=== PATIENT | female | born 1960 | race Caucasian/White ===

== ENCOUNTER 2019-02-03 12:23 | Emergency (ER) | payer MEDICARE, OTHER ==
[2019-02-03] MEDS ORDERED: IPRATROPIUM-ALBUTEROL 3 ML NEB INHALATION STA (14:02)
[2019-02-03] MEDS ORDERED: MAGNESIUM SULFATE-D5W PMX 1 GM in DEXTROSE/WATER 1 100ML.BAG IVPB STA (14:02)
[2019-02-03] MEDS ORDERED: methylPREDNISolone SOD SUCCI 125 MG/2 ML VIAL IV STA (14:02)
[2019-02-03 14:42] LABS: Basophils % (A) 1 %; Eosinophils # (A) 0.3 k/uL (0-0.7); Eosinophils % (A) 3 %; HCT 39.5 % (34.0-46.0); HGB 13.1 gm/dL (11.4-16.0); Lymphocytes # (A) 2.1 k/uL (1.0-4.8); Lymphocytes % (A) 22 %; MCH 30.2 pg (25.0-35.0); MCHC 33.1 g/dL (31.0-37.0); MCV 91.2 fL (80.0-100.0); Mean Platelet Volume 8.6; Monocytes # (A) 0.4 k/uL (0-1.0); Monocytes % (A) 4 %; Neutrophils # (A) 6.3 k/uL (1.3-7.7); Neutrophils % (A) 69 %; Platelet Count 254 k/uL (150-450); RBC 4.33 m/uL (3.80-5.40); RDW 13.2 % (11.5-15.5); WBC 9.2 k/uL (3.8-10.6)
[2019-02-03 14:43] LABS: Appearance,Urine Clear (Clear); Bilirubin,Urine Negative (Negative); Blood,Urine Negative (Negative); Color,Urine Light Yellow; Glucose,Urine (UA) Negative (Negative); Ketones,Urine Negative (Negative); Leukocyte Esterase,Urine Negative (Negative); Nitrite,Urine Negative (Negative); Protein,Urine Negative (Negative); Specific Gravity,Urine 1.009 (1.001-1.035); Urobilinogen,Urine <2.0 mg/dL (<2.0)
[2019-02-03 14:51] VITALS: RESP 20
[2019-02-03 14:51] LABS: ALT 27 U/L (9-52); AST 39 U/L (14-36); African American GFR (CKD) >90 (>60 ml/min/1.73 sqM); Albumin 4.2 g/dL (3.5-5.0); Alkaline Phosphatase 90 U/L (38-126); Anion Gap 6 mmol/L; Blood Urea Nitrogen 13 mg/dL (7-17); Calcium 9.3 mg/dL (8.4-10.2); Carbon Dioxide 25 mmol/L (22-30); Chloride 107 mmol/L (98-107); Glucose 143 mg/dL (74-99); Magnesium 1.6 mg/dL (1.6-2.3); Non-African American GFR(CKD) >90 (>60 ml/min/1.73 sqM); Potassium 5.4 mmol/L (3.5-5.1); Sodium 138 mmol/L (137-145); Total Bilirubin 0.8 mg/dL (0.2-1.3); Total Protein 7.1 g/dL (6.3-8.2)
[2019-02-03 14:58] LABS: INR 0.9 (<1.2); Prothrombin Time 10.2 sec (9.0-12.0)
[2019-02-03 15:01] LABS: Partial Thromboplastin Time 21.7 sec (22.0-30.0)
--- NOTE | 2019-02-03 15:27 | XR ---
EXAMINATION TYPE: XR chest 2V DATE OF EXAM: 02/03/2019 COMPARISON: NONE HISTORY: Shortness of breath with lower extremity swelling. History of CHF and COPD. TECHNIQUE: Frontal and lateral views of the chest are obtained. FINDINGS: Cardiomediastinal silhouette is enlarged with post CABG changes. Very mild pulmonary vascu lar prominence is seen throughout. Copious soft tissues obscure the lung bases on the frontal view ho wever no pleural effusions on the lateral view. IMPRESSION: Mild fluid overload mild pulmonary vascular congestion and enlarged cardiac mediastinal silhouette.
--- NOTE | 2019-02-03 16:27 | ED ---
SOB HPI - General Chief Complaint: Shortness of Breath Stated Complaint: COPD, CHF, fluid in lungs Time Seen by Provider: 02/03/19 12:50 Source: patient Mode of arrival: wheelchair Limitations: no limitations - History of Present Illness Initial Comments: The patient is a 58-year-old female past medical history of COPD, hypertension and heart failure presents to the emergency department from [facility]. She has been residing at their facility for 2 months because of Xanax abuse. States that she has a history of COPD and CHF. She is suppose to be on 2 L of oxygen however since she has been residing at the facility she has not worn it. Also admits to a history of CHF and is supposed to be on Lasix. States that she hasn't been taking this medication either. During her stay at [facility] she has had increasing shortness of breath and wheezing. She does admit to sick contacts. The physician there evaluated her and place her on amoxicillin and then a Z-Curt when her symptoms didn't improve. She admits to a reductive cough with yellow sputum. He has been using her nebulizer with minimal improvement in her symptoms. Also admits to nasal congestion and ear pain. Reports a sore scratchy throat. No fevers or chills. Has not been on any steroids recently. Does see a automatic head sawyer and utility specialist out of [place] where she lives. She is a history of aortic valve replacement done in 2005. Reports to chronic bilateral lower extremity edema. Denies any calf pain or swelling. No history of DVT or PE. No chest pain. There are no alleviating, precipitating or modifying factors - Related Data Previous Rx's Medication Instructions Recorded Furosemide [Lasix] 20 mg PO DAILY #14 tablet 02/03/19 predniSONE 20 mg PO BID #10 tab 02/03/19 Allergies Allergy/AdvReac Type Severity Reaction Status Date / Time amitriptyline [From Elavil] Allergy Unknown Verified 02/03/19 12:53 diphenhydramine Allergy Unknown Verified 02/03/19 12:53 [From Benadryl] gabapentin [From Neurontin] Allergy Unknown Verified 02/03/19 12:53 morphine Allergy Unknown Verified 02/03/19 12:53 Review of Systems ROS Statement: Those systems with pertinent positive or pertinent negative responses have been documented in the HPI. ROS Other: All systems not noted in ROS Statement are negative. Past Medical History Past Medical History: Heart Failure, COPD, Hypertension Additional Past Medical History / Comment(s): hypoglycemia, wears oxygen at times, History of Any Multi-Drug Resistant Organisms: None Reported Past Surgical History: Section, Cholecystectomy, Coronary Bypass/CABG, Orthopedic Surgery Past Psychological History: No Psychological Hx Reported Smoking Status: Current every day smoker Past Alcohol Use History: None Reported Past Drug Use History: Prescription Drug Abuse General Exam Limitations: no limitations General appearance: alert, in no apparent distress Head exam: Present: atraumatic, normocephalic, normal inspection Eye exam: Present: normal appearance, PERRL, EOMI. Absent: scleral icterus, conjunctival injection, periorbital swelling ENT exam: Present: normal exam, mucous membranes moist Neck exam: Present: normal inspection. Absent: tenderness, meningismus, lymp hadenopathy Respiratory exam: Present: wheezes, rales, other (bronchospastic cough). Absent: respiratory distress, rhonchi, stridor Cardiovascular Exam: Present: regular rate, normal rhythm, normal heart sounds. Absent: systolic murmur, diastolic murmur, rubs, gallop, clicks GI/Abdominal exam: Present: soft, normal bowel sounds. Absent: distended, tenderness, guarding, rebound, rigid Extremities exam: Present: normal inspection, full ROM, normal capillary refill, pedal edema. Absent: tenderness, joint swelling, calf tenderness Back exam: Present: normal inspection Neurological exam: Present: alert, oriented X3, CN II-XII intact Psychiatric exam: Present: normal affect, normal mood Skin exam: Present: warm, dry, intact, normal color. Absent: rash Course Vital Signs 02/03/19 02/03/19 02/03/19 12:46 13:18 14:40 Temperature 98.0 F 98.7 F Pulse Rate 89 90 84 Respiratory 18 21 18 Rate Blood Pressure 119/64 118/71 O2 Sat by Pulse 99 97 Oximetry 02/03/19 02/03/19 14:48 16:39 Temperature 98.4 F 98.3 F Pulse Rate 83 89 Respiratory 20 20 Rate Blood Pressure 94/73 123/67 O2 Sat by Pulse 95 Oximetry Medical Decision Making - Medical Decision Making Upon arrival the patient was placed in room 15. A thorough history and physical exam was performed. The patient's does have vitals obtained and she has 95% saturation on room air. Denies not demonstrate any increased worker breathing however does have expiratory wheeze on exam. Because of this I did obtain IV access. The patient was given 125 mg solu Medrol, 1 g of magnesium and a DuoNeb breathing treatment. I did recommend laboratory studies. CBC is unremarkable. Coags are unremarkable. CMP shows a potassium of 5.4. Glucose 143. Troponin 0.015. BNP is 195. UA is negative. Influenza A and B are not detected. Chest x-ray demonstrated mild fluid overload mild pulmonary vascular congestion enlarged cardiac mediastinal silhouette. I discussed the case with the patient. I did recommend hospital admission as the patient has failed outpatient therapy however she refused. She is requesting to go home at this time. I did inform her that she will be placed on steroids because she is having persistent symptoms. Also recommended the patient restart her Lasix. I will write her a prescription for this. I strongly encouraged her to wear her oxygen. She needs to follow-up with her primary care physician to ensure stable kidney function on the Lasix. If she has any new or worsening symptoms or agrees to hospital admission she should return to the emergency room. The patient was then discharged back to [facility] in stable condition - Lab Data Result diagrams: 02/03/19 14:31 02/03/19 14:31 Lab Results 02/03/19 02/03/19 02/03/19 Range/Units 14:31 14:31 14:31 WBC 9.2 (3.8-10.6) k/uL RBC 4.33 (3.80-5.40) m/uL Hgb 13.1 (11.4-16.0) gm/dL Hct 39.5 (34.0-46.0) % MCV 91.2 (80.0-100.0) fL MCH 30.2 (25.0-35.0) pg MCHC 33.1 (31.0-37.0) g/dL RDW 13.2 (11.5-15.5) % Plt Count 254 (150-450) k/uL Neutrophils % 69 % Lymphocytes % 22 % Monocytes % 4 % Eosinophils % 3 % Basophils % 1 % Neutrophils # 6.3 (1.3-7.7) k/uL Lymphocytes # 2.1 (1.0-4.8) k/uL Monocytes # 0.4 (0-1.0) k/uL Eosinophils # 0.3 (0-0.7) k/uL Basophils # 0.0 (0-0.2) k/uL PT (9.0-12.0) sec INR (<1.2) APTT (22.0-30.0) sec Sodium 138 (137-145) mmol/L Potassium 5.4 H (3.5-5.1) mmol/L Chloride 107 (98-107) mmol/L Carbon Dioxide 25 (22-30) mmol/L Anion Gap 6 mmol/L BUN 13 (7-17) mg/dL Creatinine 0.53 (0.52-1.04) mg/dL Est GFR (CKD-EPI)AfAm >90 (>60 ml/min/1.73 sqM) Est GFR (CKD-EPI)NonAf >90 (>60 ml/min/1.73 sqM) Glucose 143 H (74-99) mg/dL Plasma Lactic Acid [place] (0.7-2.0) mmol/L Calcium 9.3 (8.4-10.2) mg/dL Magnesium 1.6 (1.6-2.3) mg/dL Total Bilirubin 0.8 (0.2-1.3) mg/dL AST 39 H (14-36) U/L ALT 27 (9-52) U/L Alkaline Phosphatase 90 (38-126) U/L Troponin I (0.000-0.034) ng/mL NT-Pro-B Natriuret Pep 195 pg/mL Total Protein 7.1 (6.3-8.2) g/dL Albumin 4.2 (3.5-5.0) g/dL Urine Color Urine Appearance (Clear) Urine pH (5.0-8.0) Ur Specific [place] (1.001-1.035) Urine Protein (Negative) Urine Glucose (UA) (Negative) Urine Ketones (Negative) Urine Blood (Negative) Urine Nitrite (Negative) Urine Bilirubin (Negative) Urine Urobilinogen (<2.0) mg/dL Ur Leukocyte Esterase (Negative) Influenza Type A RNA (Not Detectd) Influenza Type B (PCR) (Not Detectd) 02/03/19 02/03/19 02/03/19 Range/Units 14:31 14:31 14:31 WBC (3.8-10.6) k/uL RBC (3.80-5.40) m/uL Hgb (11.4-16.0) gm/dL Hct (34.0-46.0) % MCV (80.0-100.0) fL MCH (25.0-35.0) pg MCHC (31.0-37.0) g/dL RDW (11.5-15.5) % Plt Count (150-450) k/uL Neutrophils % % Lymphocytes % % Monocytes % % Eosinophils % % Basophils % % Neutrophils # (1.3-7.7) k/uL Lymphocytes # (1.0-4.8) k/uL Monocytes # (0-1.0) k/uL Eosinophils # (0-0.7) k/uL Basophils # (0-0.2) k/uL PT 10.2 (9.0-12.0) sec INR 0.9 (<1.2) APTT 21.7 L (22.0-30.0) sec Sodium (137-145) mmol/L Potassium (3.5-5.1) mmol/L Chloride (98-107) mmol/L Carbon Dioxide (22-30) mmol/L Anion Gap mmol/L BUN (7-17) mg/dL Creatinine (0.52-1.04) mg/dL Est GFR (CKD-EPI)AfAm (>60 ml/min/1.73 sqM) Est GFR (CKD-EPI)NonAf (>60 ml/min/1.73 sqM) Glucose (74-99) mg/dL Plasma Lactic Acid [place] (0.7-2.0) mmol/L Calcium (8.4-10.2) mg/dL Magnesium (1.6-2.3) mg/dL Total Bilirubin (0.2-1.3) mg/dL AST (14-36) U/L ALT (9-52) U/L Alkaline Phosphatase (38-126) U/L Troponin I 0.015 (0.000-0.034) ng/mL NT-Pro-B Natriuret Pep pg/mL Total Protein (6.3-8.2) g/dL Albumin (3.5-5.0) g/dL Urine Color Light Yellow Urine Appearance Clear (Clear) Urine pH 6.0 (5.0-8.0) Ur Specific [place] 1.009 (1.001-1.035) Urine Protein Negative (Negative) Urine Glucose (UA) Negative (Negative) Urine Ketones Negative (Negative) Urine Blood Negative (Negative) Urine Nitrite Negative (Negative) Urine Bilirubin Negative (Negative) Urine Urobilinogen <2.0 (<2.0) mg/dL Ur Leukocyte Esterase Negative (Negative) Influenza Type A RNA (Not Detectd) Influenza Type B (PCR) (Not Detectd) 02/03/19 02/03/19 Range/Units 14:31 14:36 WBC (3.8-10.6) k/uL RBC (3.80-5.40) m/uL Hgb (11.4-16.0) gm/dL Hct (34.0-46.0) % MCV (80.0-100.0) fL MCH (25.0-35.0) pg MCHC (31.0-37.0) g/dL RDW (11.5-15.5) % Plt Count (150-450) k/uL Neutrophils % % Lymphocytes % % Monocytes % % Eosinophils % % Basophils % % Neutrophils # (1.3-7.7) k/uL Lymphocytes # (1.0-4.8) k/uL Monocytes # (0-1.0) k/uL Eosinophils # (0-0.7) k/uL Basophils # (0-0.2) k/uL PT (9.0-12.0) sec INR (<1.2) APTT (22.0-30.0) sec Sodium (137-145) mmol/L Potassium (3.5-5.1) mmol/L Chloride (98-107) mmol/L Carbon Dioxide (22-30) mmol/L Anion Gap mmol/L BUN (7-17) mg/dL Creatinine (0.52-1.04) mg/dL Est GFR (CKD-EPI)AfAm (>60 ml/min/1.73 sqM) Est GFR (CKD-EPI)NonAf (>60 ml/min/1.73 sqM) Glucose (74-99) mg/dL Plasma Lactic Acid [place] 1.5 (0.7-2.0) mmol/L Calcium (8.4-10.2) mg/dL Magnesium (1.6-2.3) mg/dL Total Bilirubin (0.2-1.3) mg/dL AST (14-36) U/L ALT (9-52) U/L Alkaline Phosphatase (38-126) U/L Troponin I (0.000-0.034) ng/mL NT-Pro-B Natriuret Pep pg/mL Total Protein (6.3-8.2) g/dL Albumin (3.5-5.0) g/dL Urine Color Urine Appearance (Clear) Urine pH (5.0-8.0) Ur Specific [place] (1.001-1.035) Urine Protein (Negative) Urine Glucose (UA) (Negative) Urine Ketones (Negative) Urine Blood (Negative) Urine Nitrite (Negative) Urine Bilirubin (Negative) Urine Urobilinogen (<2.0) mg/dL Ur Leukocyte Esterase (Negative) Influenza Type A RNA Not Detected (Not Detectd) Influenza Type B (PCR) Not Detected (Not Detectd) - EKG Data EKG Comments: EKG demonstrates a sinus rhythm with frequent PVCs. Rate of 88. OH interval 156. QRS 80. QTC of 467. There are no acute ST segment elevations. Inverted T-wave in V2V3. No other EKGs to compare to. Disposition Clinical Impression: Respiratory insufficiency, COPD exacerbation, CHF exacerbation Disposition: HOME SELF-CARE Condition: Stable Instructions (If sedation given, give patient instructions): Heart Failure ( ER), COPD (Chronic Obstructive Pulmonary Disease) (ED) Additional Instructions: You must be reevaluated by the physician to insure improvement in your lower extremity edema. You should be using your home oxygen. Use your inhalers as directed. Return to the emergency room for any new or worsening symptoms Prescriptions: Furosemide [Lasix] 20 mg PO DAILY #14 tablet predniSONE 20 mg PO BID #10 tab Is patient prescribed a controlled substance at d/c from ED?: No Referrals: Nonstaff,Physician [Primary Care Provider] - 1-2 days Time of Disposition: 16:26
[2019-02-03 16:40] VITALS: BP 123/67; PULSE 89; TEMP 98.3
== END 2019-02-03 16:49 | disposition home or self-care (01) ==
LOC: EC 12:23
DX: J44.1 Chronic obstructive pulmonary disease with (acute) exacerbation (principal); I50.9 Heart failure, unspecified; R09.81 Nasal congestion; H92.09 Otalgia, unspecified ear; R09.89 Other specified symptoms and signs involving the circulatory and respiratory systems; I11.0 Hypertensive heart disease with heart failure; F17.200 Nicotine dependence, unspecified, uncomplicated; Z88.5 Allergy status to narcotic agent; Z88.8 Allergy status to other drugs, medicaments and biological substances; Z95.1 Presence of aortocoronary bypass graft; Z95.2 Presence of prosthetic heart valve; Z53.20 Procedure and treatment not carried out because of patient's decision for unspecified reasons
CPT/HCPCS: 99285; 96365; 96375; 36415; 94640; 93005; 83880; 80053; 83605; 83735; 84484; 85025; 85610; 85730; 81003; 87502; 71046; J2930; J3475

== ENCOUNTER 2021-09-06 10:25 | Emergency (ER) | payer OTHER ==
[2021-09-06 10:34] VITALS: RESP 18; TEMP 99.1
--- NOTE | 2021-09-06 10:50 | ED ---
Fall HPI - General Chief Complaint: Fall Stated Complaint: Fall, Left Hip Pain, Head and Neck pain Time Seen by Provider: 09/06/21 10:29 Source: patient, EMS, RN notes reviewed Mode of arrival: EMS Limitations: physical limitation - History of Present Illness Initial Comments: This a 61-year-old female presents emergency from via EMS chief complaint of a fall. Patient went to sit down on her rolling walker and states it fell backwards. Patient complains of head injury left shoulder pain left hip pain. Patient states is more that she cannot sit and up on her own and which EMS was called by Center. Patient was given Zofran she had some nausea symptoms are resolved denies any blurred vision no focal weakness no other complaints. No chest pain or shortness breath. - Related Data Home Medications Medication Instructions Recorded Confirmed Albuterol Sulfate [Albuterol 2 puff INHALATION RT-Q4H PRN 09/06/21 09/06/21 Sulfate Hfa] Budesonide-Formot 160-4.5 Mcg 2 puff INHALATION RT-BID 09/06/21 09/06/21 [Symbicort 160-4.5 Mcg Inhaler] Ipratropium [place] [Atrovent Hfa] 2 puff INHALATION RT-BID 09/06/21 09/06/21 Nystatin 1 applic TOPICAL TID 09/06/21 09/06/21 SUMAtriptan succinate [Imitrex] 100 mg PO BID PRN 09/06/21 09/06/21 hydrALAZINE HCL [Apresoline] 25 mg PO BID PRN 09/06/21 09/06/21 metFORMIN HCL 500 mg PO BID 09/06/21 09/06/21 Allergies Allergy/AdvReac Type Severity Reaction Status Date / Time amitriptyline [From Elavil] Allergy Unknown Verified 09/06/21 12:11 diphenhydramine Allergy Rash/Hives Verified 09/06/21 12:11 [From Benadryl] gabapentin [From Neurontin] Allergy Unknown Verified 09/06/21 12:11 morphine Allergy Itching Verified 09/06/21 12:11 Review of Systems ROS Statement: Those systems with pertinent positive or pertinent negative responses have been documented in the HPI. ROS Other: All systems not noted in ROS Statement are negative. Past Medical History Past Medical History: Heart Failure, COPD, Hypertension Additional Past Medical History / Comment(s): hypoglycemia, wears oxygen at times, History of Any Multi-Drug Resistant Organisms: None Reported Past Surgical History: Section, Cholecystectomy, Coronary Bypass/CABG, Orthopedic Surgery Past Psychological History: No Psychological Hx Reported Smoking Status: Current every day smoker Past Alcohol Use History: Daily Past Drug Use History: Prescription Drug Abuse General Exam General appearance: alert, in no apparent distress Head exam: Present: atraumatic, normocephalic, normal inspection Eye exam: Present: normal appearance, PERRL, EOMI. Absent: scleral icterus, conjunctival injection, periorbital swelling ENT exam: Present: normal exam, normal oropharynx, mucous membranes moist Neck exam: Present: normal inspection. Absent: tenderness, meningismus, full ROM (Patient in c-collar), lymphadenopathy Respiratory exam: Present: normal lung sounds bilaterally, prolonged expiratory. Absent: respiratory distress, wheezes, rales, rhonchi, stridor, decreased breath sounds Cardiovascular Exam: Present: regular rate, normal rhythm, normal heart sounds. Absent: systolic murmur, diastolic murmur, rubs, gallop, clicks Extremities exam: Present: other (Left shoulder mild tenderness, no iris deformity neurovascular intact, left hip full range of motion neurovascular intact minimal tenderness) Neurological exam: Present: alert, oriented X3, CN II-XII intact, reflexes normal. Absent: motor sensory deficit Course Vital Signs 09/06/21 10:26 Temperature 99.1 F Pulse Rate 98 Respiratory 18 Rate Blood Pressure 110/69 O2 Sat by Pulse 95 Oximetry Medical Decision Making - Medical Decision Making CT of brain, C-spine, x-ray of the shoulder and pelvis is negative for acute fracture. Patient has scoped contusion, left shoulder contusion tip contusion patient was discharged in stable condition return parameters were discussed. Disposition Clinical Impression: Fall, Head contusion, Contusion of left shoulder, Contusion of left hip Disposition: HOME SELF-CARE Condition: Stable Instructions (If sedation given, give patient instructions): Contusion in Adults (ED) Additional Instructions: Please return to the Emergency Department if symptoms worsen or any other concerns. Is patient prescribed a controlled substance at d/c from ED?: No Referrals: Nonstaff,Physician [Primary Care Provider] - 1-2 days Time of Disposition: 12:23
--- NOTE | 2021-09-06 11:14 | CT ---
EXAMINATION TYPE: CT brain chetan tracey con DATE OF EXAM: 09/06/2021 COMPARISON: None HISTORY: fall CT DLP: 1847.[address] of the brain was performed. The ventricles, basal cisterns and sulci overlying the cerebral convexities demonstrate mild enlargem ent. There is no evidence for intracranial hemorrhage or sulcal effacement. There is decreased attenuatio n about the periventricular white matter and deep white matter of both cerebral hemispheres, compatib le with chronic small vessel ischemia. No mass effects are seen. If symptoms persist consider MRI. Osseous calvarium is intact. IMPRESSION: 1. Age related atrophic and chronic small vessel ischemic change without acute intracranial process seen at this time. CT Cervical Spine: Unenhanced CT of the cervical spine was performed with bone and soft tissue window settings submitted . Coronal and sagittal reconstruction is obtained. There is normal alignment and prevertebral soft tissues. No evidence for acute cervical fracture . Scattered degenerative disc disease and spondylosis. Biapical scarring. IMPRESSION: 1. No evidence for acute fracture or subluxation of the cervical spine.
--- NOTE | 2021-09-06 11:25 | XR ---
EXAMINATION TYPE: XR shoulder complete LT DATE OF EXAM: 09/06/2021 CLINICAL HISTORY: pain COMPARISON: NONE TECHNIQUE: Three views of the left shoulder are obtained. FINDINGS: There is no acute fracture/dislocation evident. The acromioclavicular and glenohumeral gordy int spaces appear moderately narrowed. The visualized ribs are intact and unremarkable. IMPRESSION: 1. There is no acute fracture or dislocation. ICD 10 NO FRACTURE, INITIAL EVALUATION
--- NOTE | 2021-09-06 11:26 | XR ---
EXAMINATION TYPE: XR pelvis AP view DATE OF EXAM: 09/06/2021 CLINICAL HISTORY: pain TECHNIQUE: Single view the pelvis is submitted. FINDINGS: No evidence for fracture, dislocation or bony lesion. Joint spaces are well-preserved. Ch ronic appearing deformity right os pubis. SI joints appear symmetric. IMPRESSION: 1. No acute fracture or dislocation seen. ICD 10 NO FRACTURE, INITIAL EVALUATION
[2021-09-06] MEDS ORDERED: HYDROcodone/APAP 5-325MG 1 EACH TAB PO STA (11:27)
[2021-09-06] MEDS ORDERED: ACET/COD 300 MG/30 MG STARTER PACK 6 TAB BTL PO STA (12:23)
[2021-09-06 12:42] VITALS: BP 120/84; PULSE 92
== END 2021-09-06 13:02 | disposition home or self-care (01) ==
LOC: EC 10:25
DX: S00.93XA Contusion of unspecified part of head, initial encounter (principal); S40.012A Contusion of left shoulder, initial encounter; S70.02XA Contusion of left hip, initial encounter; F17.200 Nicotine dependence, unspecified, uncomplicated; I11.0 Hypertensive heart disease with heart failure; I50.9 Heart failure, unspecified; E11.9 Type 2 diabetes mellitus without complications; Z88.5 Allergy status to narcotic agent; Z88.8 Allergy status to other drugs, medicaments and biological substances; Z79.899 Other long term (current) drug therapy; Z79.84 Long term (current) use of oral hypoglycemic drugs; W19.XXXA Unspecified fall, initial encounter; Y93.01 Activity, walking, marching and hiking
CPT/HCPCS: 70450; 72125; 72170; 99284